=== PATIENT | female | born 1965 | race Caucasian/White ===

== ENCOUNTER 2024-06-19 07:21 | Outpatient (CLI) | payer OTHER, SELFPAY ==
--- NOTE | 2024-06-19 07:45 | CRLHL7_ITS ---
For Patients: As a result of the 21st Century Cures Act, medical imaging exams and procedure reports are released immediately into your electronic medical record. You may view this report before your referring provider. If you have questions, please contact your health care provider. EXAM: NM GASTRIC EMPTYING SCAN Indication : 58 year-old woman with dysphagia. TECHNIQUE: Radiopharmaceutical: 0.79 [place]ur[place] 99m Tc sulfur colloid, combined with a standard egg meal, administered orally. Patient consumed 100% of solid portion of standard meal and water. Image acquisition: Static anterior/posterior images were obtained immediately after administration, and at 30, 60, 90, 120, and 240 minutes post radiotracer administration. At each time point, the geometric mean was calculated based on ROIs placed over the stomach. Comparison: None Findings: Radiotracer is seen to progress from the gastric fundus to the antrum and into the small bowel. Summary of gastric activity*: 1 hour: 79% empty, 21% retained (normal is <30 and <90% retention). 2 hours: 93% empty, 7% retained (normal is <60% retention). 4 hours: 99% empty, 1%retained (normal is <10% retention). Impression: Rapid gastric emptying, with 79% of gastric emptying occurring within the first 60 minutes of the study, above normal limits. * Data are from Am J Gastroenterol. 2008; 103:753-763 Dictated by Oumar English MD @ 06/19/2024 5:01:54 PM (Electronically Signed)
== END 2024-06-19 07:22 | disposition home or self-care (01) ==
PROVIDERS: Visit Provider Surgery
DX: R13.10 Dysphagia, unspecified (principal)
CPT/HCPCS: 78264; A9541

== ENCOUNTER 2024-06-20 09:05 | Outpatient (CLI) | payer OTHER, SELFPAY | END 2024-06-20 09:06 | disposition home or self-care (01) | LOC: RAD 09:06 | PROVIDERS: Visit Provider Surgery | DX: K44.9 Diaphragmatic hernia without obstruction or gangrene (principal); R13.10 Dysphagia, unspecified | CPT/HCPCS: 74246 ==

== ENCOUNTER 2024-08-24 10:25 | Outpatient (CLI) | payer OTHER, SELFPAY ==
--- NOTE | 2024-08-24 12:28 | P.ANES_ITS ---
Anesthesia Charges Start Date/Time Anesthesia Start Date: 08/24/24 Anesthesia Start Time: 11:20 Stop Date/Time Anesthesia Stop Date: 08/24/24 Anesthesia Stop Time: 01:10 Coding CPT Codes CPT Codes: ANES UPR GI NDSC PX NOS - 12197 ([id number]) P3 - PATIENT W/SEVERE SYS DISEASE, QK - COATING MACHINE OPERATOR HELPER 2-4 CNCRNT ANES PROC, QX - CAN RUNNER SVC W/ MD MED DIRECTION
--- NOTE | 2024-08-24 12:28 | W.ANESCHARGE ---
Anesthesia Charges Start Date/Time Anesthesia Start Date: 08/24/24 Anesthesia Start Time: 11:20 Stop Date/Time Anesthesia Stop Date: 08/24/24 Anesthesia Stop Time: 01:10 Coding CPT Codes CPT Codes: ANES UPR GI NDSC PX NOS - 60550 ([id number]) P3 - PATIENT W/SEVERE SYS DISEASE, QK - VIDEO SURVEILLANCE TECHNICIAN 2-4 CNCRNT ANES PROC, QX - RELEASE SPECIALIST SVC W/ MD MED DIRECTION
--- NOTE | 2024-08-24 12:34 | P.ANES_ITS ---
Anesthesia Charges Start Date/Time Anesthesia Start Date: 08/24/24 Stop Date/Time Anesthesia Stop Date: 08/24/24 Coding CPT Codes CPT Codes: ANES UPR GI NDSC PX NOS - 51557 ([id number]) P3 - PATIENT W/SEVERE SYS DISEASE, QK - STRAW HAT PRESSER 2-4 CNCRNT ANES PROC, QX - SENIOR ASSISTANT MANAGER SVC W/ MD MED DIRECTION
--- NOTE | 2024-08-24 12:34 | W.ANESCHARGE ---
Anesthesia Charges Start Date/Time Anesthesia Start Date: 08/24/24 Stop Date/Time Anesthesia Stop Date: 08/24/24 Coding CPT Codes CPT Codes: ANES UPR GI NDSC PX NOS - 59772 ([id number]) P3 - PATIENT W/SEVERE SYS DISEASE, QK - TOURIST CABIN KEEPER 2-4 CNCRNT ANES PROC, QX - SKATE SHOP ATTENDANT SVC W/ MD MED DIRECTION
== END 2024-08-24 10:26 | disposition home or self-care (01) ==
PROVIDERS: Visit Provider Surgery
DX: R13.10 Dysphagia, unspecified (principal)
CPT/HCPCS: 00731; 43239; 88305; J2704; J3490

== ENCOUNTER 2024-09-05 08:00 | Outpatient (CLI) | payer OTHER, SELFPAY ==
--- NOTE | 2024-09-05 08:15 | CRLHL7_ITS ---
For Patients: As a result of the Century Cures Act, medical imaging exams and procedure reports are released immediately into your electronic medical record. You may view this report before your referring provider. If you have questions, please contact your health care provider. Technique: Single contrast upper GI followed by small-bowel follow-through Fluoroscopy time 1 minute 11 seconds. Indication: Pain with eating and drinking Comparison: Gastric emptying exam 06/19/2024, CT abdomen 02/13/2024, upper GI 06/20/2024 Findings: Swallowing mechanism: Patient became horse during swallowing without evidence of aspiration. Esophageal motility: There is slight delayed motility just above the gastroesophageal junction although there is normal passage of a 13 millimeter barium tablet through this area. No evidence of stricture or achalasia. No ulcer or mucosal inflammation. Gastroesophageal reflux: None visualized during the course of the examination. Hernia: Postop changes of hiatal hernia repair with takedown of Max fundoplication. Residual scarring at the superior gastric wall noted. Small bowel: Normal mucosal fold pattern involving the duodenal, jejunum and ileum. No evidence of inflammatory bowel disease. Transit time 1 hour 30 minutes. Other: Status post cholecystectomy. Osseous structures unremarkable. No pleural effusion. Impression: Slight focal delayed esophageal motility just above the GE junction suggesting some degree of functional delayed transit. A small amount of residual food material is present within the stomach from meal ingested over 12 hours prior to this study. However, gastric emptying is considered to be within normal limits on this exam. Patient is focally tender within the mid upper abdomen overlying the distal stomach/pancreas. Normal gastric mucosal fold pattern and normal small bowel without delayed transit through the small bowel. Further evaluation of the focal upper abdominal pain just below the ribcage could potentially include CT scan to evaluate for the possibility of abdominal wall hernia containing fat. Pain management clinic could be considered for therapeutic lidocaine/steroid injection of the lower right ribcage. Speech pathology consult could also be considered for hoarseness noted during drinking the contrast. Dictated by Juan Mcguire MD @ 09/05/2024 11:09:08 AM (Electronically Signed)
== END 2024-09-05 08:01 | disposition home or self-care (01) ==
LOC: RAD 08:00
PROVIDERS: Visit Provider Surgery
DX: R10.9 Unspecified abdominal pain (principal); R49.0 Dysphonia; Z87.19 Personal history of other diseases of the digestive system
CPT/HCPCS: 74246; 74248

== ENCOUNTER 2024-10-09 12:23 | Outpatient (CLI) | payer OTHER, SELFPAY ==
--- NOTE | 2024-10-09 14:00 | CRLHL7_ITS ---
For Patients: As a result of the Century Cures Act, medical imaging exams and procedure reports are released immediately into your electronic medical record. You may view this report before your referring provider. If you have questions, please contact your health care provider. Indication: ABD PAIN/BURNING RT SIDE TO LEFT, DIFFICULTY EATING. FEELS IF STOMACH NOT EMPTYING, COMPLICATED RECENT SURGICAL HISTORY 07/09/24 ALEXI AND Max fundoplication WITH MESH HIATAL HERNIA PATCH. 07/12/24 Max revision Technique: CT Abdomen/Pelvis W/ ISOVUE 370 intravenous contrast AND OMNIPAQUE 140 50C oral contrast Please note that all CT scans at this facility use dose modulation, iterative reconstruction, and/or weight-based dosing when appropriate to reduce radiation dose to as low as reasonably achievable. Comparison: Upper GI studies 09/05/2024 and 06/20/2024. Outside CT scan 07/10/2024. Findings: 3.1 millimeter subpleural nodule right middle lobe. 3.5 millimeter nodule left lower lobe. Additional nodule within the left lower lobe measuring 4 millimeters. No pleural effusion. Resolution of the previously noted pneumomediastinum and subcutaneous emphysema. Postoperative changes of hiatal hernia repair with Max fundoplication takedown. Postop changes to the superior gastric wall noted. No recurrent hiatal hernia. Surgical clips are present within the gastrohepatic ligament. No intrahepatic mass. The gallbladder is absent. No biliary obstruction. The pancreas is normal without lesion or inflammation. Normal spleen. Adrenal glands are unremarkable. Normal kidneys. Residual food products are present in the stomach. Patient last ate 9 hours ago. Positive enteric contrast extends from the stomach through the duodenum and into the jejunum. Positive oral contrast is also located within loops of proximal ileum. No pelvic mass. The bladder is normal. Moderate stool in the colon. No colonic mucosal thickening. Normal diameter of the appendix. Residual enteric contrast located in the appendix from prior studies. There is fullness of the duodenal mucosa relative to the jejunum. A few scattered sub cm mesenteric lymph nodes are present which are considered normal. Small bone islands are present within the proximal femurs. No fracture. There is no abdominal wall hernia. The lower right ribcage is intact. Impression: Intact lower right ribcage without fracture deformity. No evidence of right upper quadrant or midline upper abdominal hernia. There is passage of positive orally ingested enteric contrast through the stomach and into the duodenum, jejunum and extending to the proximal ileum. However, there are residual food products present in the stomach from last meal ingestion 9 hours ago. Again, this does suggest some degree of delayed transit. There may be mucosal thickening of the duodenal which could suggest underlying duodenitis. Incidental 4 millimeter or less pulmonary nodules in the visualized lung bases. Optional follow-up CT chest in 1 year could be considered particularly if the patient is a smoker. Resolution of previously noted pneumomediastinum and subcutaneous emphysema. No free intraperitoneal air or abscess. Postop changes of the GE junction appear unremarkable. Please note that all CT scans at this facility use dose modulation, iterative reconstruction, and/or weight-based dosing when appropriate to reduce radiation dose to as low as reasonably achievable. Dictated by Juan Mcguire MD @ 10/10/2024 9:50:20 AM (Electronically Signed)
== END 2024-10-09 12:24 | disposition home or self-care (01) ==
LOC: CT 12:23
PROVIDERS: Visit Provider Surgery
DX: R10.9 Unspecified abdominal pain (principal); R91.8 Other nonspecific abnormal finding of lung field
CPT/HCPCS: 74177; Q9967